=== PATIENT | male | born 1960 | race African-American/Black ===

== ENCOUNTER 2017-06-25 12:28 | Outpatient (CLI) | payer OTHER ==
--- NOTE | 2017-06-25 15:22 | ULT ---
BILATERAL RENAL ULTRASOUND: HISTORY: Abnormal labs, incomplete emptying of the urinary bladder. FINDINGS: The right kidney measures 13.1 cm in length and the left kidney measures 12.2 cm in length. No hydro nephrosis is seen on either side. There is a 1.5 cm cyst in the left kidney. The urinary bladder vo lume measures 160 cc. IMPRESSION: Left renal cyst. POS: [facility]
== END 2017-06-25 12:29 | disposition home or self-care (01) ==
LOC: ULT 12:28
PROVIDERS: ATTEND Urology
DX: N40.1 Benign prostatic hyperplasia with lower urinary tract symptoms (principal); R33.9 Retention of urine, unspecified; R97.20 Elevated prostate specific antigen [PSA]; R80.8 Other proteinuria; N28.1 Cyst of kidney, acquired
CPT/HCPCS: 76770

== ENCOUNTER 2017-07-30 15:04 | Outpatient (CLI) | payer OTHER ==
[2017-07-30 16:19] LABS: Hemoglobin 14.6 g/dL (14.0-18.0); Mean Corpuscular HGB CONC 32.8 g/dL (32.0-36.0); Mean Corpuscular Hemoglobin 27.3 pg (27.0-31.0); Mean Corpuscular Volume 83.2 fl (80.0-94.0); Mean Platelet Volume 7.4 fL (7.4-10.4); Platelet Count 238 thou/uL (130-400); RBC Distribution Width 14.4 % (11.5-14.5); Red Blood Cell (RBC) Count 5.34 mill/uL (4.70-6.10); White Blood Cell (WBC) Count 4.8 thou/uL (4.8-10.8)
[2017-07-30 16:26] LABS: Prothrombin Time 13.4 SEC (12.0-14.7)
[2017-07-30 16:27] LABS: PTT 46.7 SEC (22.9-36.1)
[2017-07-30 16:41] LABS: ALT (SGPT) 18 U/L (8-55); AST (SGOT) 16 U/L (5-34); Alkaline Phosphatase 132 U/L (40-150); Anion Gap 13 mmol/L (10-20); BUN (Urea Nitrogen) 14 mg/dL (8.4-25.7); Bilirubin, Total 0.7 mg/dL (0.2-1.2); Calc. Creatinine Clearance 0 mL/min (70-130); Calcium 9.7 mg/dL (7.8-10.44); Carbon Dioxide 28 mmol/L (22-29); Chloride 102 mmol/L (98-107); Estimated GFR-MDRD 75; Globulin 2.3 g/dL (2.4-3.5); Glucose 102 mg/dL (70-105); Potassium 4.4 mmol/L (3.5-5.1); Protein, Total 6.3 g/dL (6.0-8.3); Sodium 139 mmol/L (136-145)
--- NOTE | 2017-07-30 17:14 | RAD ---
PA AND LATERAL OF THE CHEST 07/30/17 INDICATION: Preop. COMPARISON: Prior chest radiograph dated 12/22/10. FINDINGS: There are patchy air space opacities seen within the right infrahilar region and left suprahilar jovanni on. There is cardiomegaly with mild pulmonary vascular congestion. No rashad pleural effusion is gross ly evident. No acute osseous abnormality is evident. IMPRESSION: 1. Perihilar air space opacities suspicious for pneumonia. Recommend correlation with the clinic al examination. 2. There is cardiomegaly with mild pulmonary vascular congestion. The air space and perihilar op acities could be related to air space edema; however, no rashad pleural effusion is evident. Continued radiographic followup is recommended. POS: [facility]
== END 2017-07-30 15:05 | disposition home or self-care (01) ==
LOC: LABBT 15:04
PROVIDERS: ATTEND Urology
DX: Z01.818 Encounter for other preprocedural examination (principal); R97.20 Elevated prostate specific antigen [PSA]; I51.7 Cardiomegaly; R91.8 Other nonspecific abnormal finding of lung field; R09.89 Other specified symptoms and signs involving the circulatory and respiratory systems
CPT/HCPCS: 71046; 80053; 85027; 85610; 85730; 87086

== ENCOUNTER 2017-08-08 06:35 | Day surgery (SDC) | payer OTHER ==
[2017-08-07 16:49] VITALS: BMI 34.2
[2017-08-08] MEDS ORDERED: Meropenem 1 GM in Sodium Chloride 0.9% 100 ML IVPB SCH (08:15)
[2017-08-08] MEDS ORDERED: Fentanyl 100 MCG/2 ML VIAL ONE (09:52)
[2017-08-08] MEDS ORDERED: Phenazopyridine HCl 97.5 MG TABLET ONE (11:26)
--- NOTE | 2017-08-08 13:44 | OP ---
DATE OF PROCEDURE: 08/08/2017 PREOPERATIVE DIAGNOSES: Mr. Araya is a 56-year-old male with, 1. Elevated PSA of 4.86 with normal digital rectal exam. 2. History of mild incomplete void. PVR variable from 60-180 mL. POSTOPERATIVE DIAGNOSES: Mr. Araya is a 56-year-old male with, 1. Elevated PSA of 4.86 with normal digital rectal exam. 2. History of mild incomplete void. PVR variable from 60-180 mL. PROCEDURE: Flexible cystoscopy, transrectal ultrasound, 12-core needle biopsy of the prostate. SURGEON: Anju Medel D.O. ANESTHESIA: LMA. COMPLICATIONS: None apparent. DISPOSITION: To the recovery room in stable condition. SPECIMEN: Twelve-core needle biopsy. INTRAOPERATIVE FINDINGS: 1. Flexible cystoscopy demonstrates no significant outlet obstruction. No evidence of urethral stricture, no significant BPH obstructive component, bladder grossly unremarkable. 2. Transrectal ultrasound demonstrates no significant lesion. INDICATIONS FOR THE PROCEDURE AND HISTORY: Mr. Araay is a 56-year-old morbidly obese -[place] male, who presented to my clinic with a history of elevated PSA 4.86. Patient's sister is his power of attorney recruiter, as he has history of multiple CVAs, schizoaffective disorder with dementia. He also has a history of pneumocephalus and chronic seizure disorder. Patient has been cleared by Cardiology and Medical Service to proceed with transrectal ultrasound under sedation. Patient was transitioned from 325 mg to 81 mg of aspirin with approval of Cardiology. Risks and complications including, but not limited to, bleeding, pain, infection, injury to adjacent organs, urosepsis , was reviewed with the patient and sister in detail. Due to his mental capacity, patient's sister, who is the power of attorney recruiter desired exam under anesthesia. DESCRIPTION OF THE PROCEDURE: After an informed consent is signed, the patient is taken to the operating room, placed in a supine position with the genital area prepped and draped in the usual surgical sterile fashion. A flexible cystoscopy was performed after broad-spectrum antibiotics and bilateral FELIPE hose and SCDs were placed. A flexible cystoscope was passed without difficulty. There is no evidence of urethral stricture, no significant outlet component obstruction. Bladder was grossly unremarkable. The prostate lobes were coapting; however, there is no significant obstructive component. The bladder was subsequently emptied with a 16-Romansh Grimm catheter, and he was turned to his left lateral decubitus position with pressure points padded and protected. A transrectal ultrasound probe was passed. Dimensions were measured for prostate volume. Urethral length 3.9, width 4.4, height 2.4 cm for a volume of 23 grams. There was no evidence of lesions. A 12 core needle biopsy was performed uneventfully. He tolerated the procedure well. He will be discharged with Omnicef for a course of 7 days, based on his Cipro resistance , rectal swab culture and urine culture negative. Omnicef 300 mg 1 p.o. b.i.d. until followup appointment. We will continue to monitor his voiding status. Strict instructions to residential regarding baby aspirin until followup appointment. GLENDY
[2017-08-08] MEDS ORDERED: PHENYLEPHRINE-NS 100 MCG/ML 10 ML SYRINGE ONE (14:40)
[2017-08-08] MEDS ORDERED: Lidocaine 1% PF 5 ML VIAL ONE (14:40)
[2017-08-08] MEDS ORDERED: ePHEDrine/0.9% NaCl/PF SYRINGE 50 mg/10 ml ONE (14:40)
[2017-08-08] MEDS ORDERED: Propofol 200 MG/20 ML VIAL ONE (14:40)
[2017-08-08] MEDS ORDERED: Dexamethasone 20 MG/5 ML VIAL ONE (14:40)
[2017-08-08] MEDS ORDERED: Ondansetron HCl/PF 4 MG/2 ML Vial ONE (14:40)
[2017-08-08] MEDS ORDERED: Tamsulosin HCl 0.4 MG CAP ONE (14:45)
--- NOTE | 2017-08-09 00:53 | EKG ---
Test Reason : PREOP Blood Pressure : / mmHG Vent. Rate : 069 BPM Atrial Rate : 069 BPM P-R Int : 150 ms QRS Dur : 086 ms QT Int : 414 ms P-R-T Axes : 069 052 047 degrees QTc Int : 443 ms Normal sinus rhythm Normal ECG When compared with ECG of 11-SEP-2013 09:57, QRS axis Shifted right QRS voltage has decreased Confirmed by TYSHAWN LUCIO, . SCharles ([id number]) on 08/09/2017 12:53:03 AM Referred By: ANTONIO Confirmed By:DR. Saranya VILLAGRAN MD
== END 2017-08-08 16:46 ==
LOC: SDC 06:35
PROVIDERS: ATTEND Urology
PROC: 0VB03ZX Excision of Prostate, Percutaneous Approach, Diagnostic (ICD-10-PCS; principal; 2017-08-08)
DX: C61 Malignant neoplasm of prostate (principal); I11.0 Hypertensive heart disease with heart failure; I50.32 Chronic diastolic (congestive) heart failure; G40.909 Epilepsy, unspecified, not intractable, without status epilepticus; E78.5 Hyperlipidemia, unspecified; F32.9 Major depressive disorder, single episode, unspecified; F03.90 Unspecified dementia, unspecified severity, without behavioral disturbance, psychotic disturbance, mood disturbance, and anxiety; F25.9 Schizoaffective disorder, unspecified; I67.4 Hypertensive encephalopathy; Z79.82 Long term (current) use of aspirin; Z79.899 Other long term (current) drug therapy; Z86.19 Personal history of other infectious and parasitic diseases; Z87.891 Personal history of nicotine dependence; Z86.73 Personal history of transient ischemic attack (TIA), and cerebral infarction without residual deficits
CPT/HCPCS: 88305; 93005; 93010; J0131; J1100; J2001; J2185; J2405; J2704; J3010; J7050

== ENCOUNTER 2017-09-06 10:50 | Outpatient (CLI) | payer OTHER ==
--- NOTE | 2017-09-06 12:46 | CT ---
PRE AND POST CONTRAST ENHANCED CT IMAGES ABDOMEN AND PELVIS: HISTORY: Patient with a history of prostate cancer. TECHNIQUE: IV contrast was given. FINDINGS: The lung bases demonstrate some diffuse ground-glass opacities in the bases, possibly representing in terstitial changes. There is no evidence of free intraperitoneal air. No evidence of osseous lesions seen. There appears to be some coronary artery calcification in the left main and LAD vessels. The liver and spleen are unremarkable. The gallbladder is contracted. The pancreas is unremarkable. Adrenal glands are unremarkable. Multiple small subcentimeter hypodense areas seen in the kidneys most compatible with renal cortical cysts. No evidence of paraaortic lymphadenopathy is seen. The prostate gland is not significantly enlarged. No significant evidence of pelvic lymphadenopathy is seen. The ureters and urinary bladder are unremarkable. Osseous lesions demonstrate no definite evidence of sclerotic bony lesions. There do appear to vacuu m disk changes seen at L5-S1 intervertebral disk space. POS: [facility]
[2017-09-06] MEDS ORDERED: Iopamidol 370 76% 100 ML VIAL ONE (17:06)
== END 2017-09-06 10:51 | disposition home or self-care (01) ==
LOC: CT 10:50
PROVIDERS: ATTEND Urology
DX: C61 Malignant neoplasm of prostate (principal)
CPT/HCPCS: 74178

== ENCOUNTER 2017-09-26 15:26 | Outpatient (CLI) | payer OTHER ==
[~2017-09-26 15:26] MED LIST: Gadobenate Dimeglumine 529 MG/1 ML (20ML VIAL) ONE
--- NOTE | 2017-09-26 20:39 | MRI ---
MRI PELVIS WITH AND WITHOUT CONTRAST PROSTATE PROTOCOL 09/26/17 HISTORY: Elevated PSA. Positive prostate biopsy. COMPARISON: None. TECHNIQUE: MRI of pelvis performed prior to and after the intravenous administration of contrast, prostate adeel col. FINDINGS: Prostate measures 4.4 x 2.9 x 3.6 cm for a volume of approximately 25 mL. Peripheral zone: Extending from the mid gland to the apex is a 7 x 10 x 9 mm T2 hypointense lesion wi th mild decreased signal on the ADC. Evaluation is limited due to extensive hemorrhage throughout the peripheral zone. There is loss of normal signal void along the capsule, series 5, image 14. No neuro vascular bundle invasion is appreciated. Rectoprostatic angles are normal. Transitional zone: Intact. Lymph nodes: No evidence of adenopathy. Small left external iliac lymph node and right external iliac lymph node. No obturator lymph nodes are appreciated. There are, however, bilateral external iliac l ymph nodes which are abnormal in size. On the right measures 11 mm in short axis and on the left carla ures up to 9 mm in short axis. Bones: On T1 imaging weighted sequence there are no abnormal areas of marrow signal replacement. Intrapelvic soft tissues: Urinary bladder is mildly distended. Mild degenerative disease of the L5-S1 disc space. The visualized rectum and sigmoid colon are unremarkable. Medial rectal fat is normal. T here is a small medial rectal lymph node at 3 o'clock measuring up to 4 mm short axis. IMPRESSION: 1. PI-RADS 4 - high (clinically significant cancer is likely to be present). This is in the left mid gland to apex 4-5 o'clock measuring 7 x 10 x 9 mm. 2. Abnormal bilateral external iliac lymph nodes, although could be reactive. No abnormal industrial engineering intern al iliac lymph nodes. 3. No evidence for osseous metastatic disease of the pelvis. 4. Loss of normal prostatic capsule, series 5, image 14 concerning for early extra prostatic ext ension. This is at the largest portion of the base of the tumor. POS: [facility]
== END 2017-09-26 15:27 | disposition home or self-care (01) ==
LOC: TBSIIMAG 15:26
PROVIDERS: ATTEND Urology
DX: C61 Malignant neoplasm of prostate (principal)
CPT/HCPCS: 72197; A9579

== ENCOUNTER 2017-12-05 14:36 | Outpatient (CLI) | payer OTHER ==
--- NOTE | 2017-12-05 16:12 | ULT ---
ULTRASOUND RETROPERITONEUM COMPLETE: (RENAL) DATE: 12/05/17. HISTORY: A 57-year-old male with prostate cancer FINDINGS: Right kidney: 13 x 6.5 x 6 cm. Left kidney: 12 x 7 x 6 cm. No hydronephrosis bilaterally. Bilateral renal parenchymal thickness normal. Small 1.5 cm round exophytic cyst protruding from cortex of left renal lower pole. Tiny 0.5 cm exophytic cyst protruding from upper pole cortex of the left kidney. Patient unable to void. Repeat urinary bladder volume 460 mL. Diffuse, mild, uniform mural thickening of the urinary bladder, up to 0.5 cm. IMPRESSION: 1. Distended urinary bladder. The patient is unable to void. 2. Mild mural thickening of the urinary bladder. 3. No hydronephrosis. 4. At least 2 small left renal cysts. JN R POS: [facility]
== END 2017-12-05 14:37 | disposition home or self-care (01) ==
LOC: ULT 14:36
PROVIDERS: ATTEND Urology
DX: C61 Malignant neoplasm of prostate (principal); R33.9 Retention of urine, unspecified; R35.0 Frequency of micturition; N32.89 Other specified disorders of bladder; N28.1 Cyst of kidney, acquired
CPT/HCPCS: 76770

== ENCOUNTER 2018-04-10 09:39 | Outpatient (CLI) | payer OTHER ==
[2018-04-10] MEDS ORDERED: Gadobenate Dimeglumine 529 MG/1 ML (20ML VIAL) ONE (10:16)
--- NOTE | 2018-04-10 16:58 | MRI ---
MRI PELVIS WITH AND WITHOUT CONTRAST PROSTATE PROTOCOL: HISTORY: Prostate cancer. COMPARISON: MRI pelvis from 09/26/2017. FINDINGS: The prostate measures 4.4 x 4.2 x 3.9 cm, for a volume of 33 mL. PERIPHERAL ZONE: The previously noted area of T2 signal hypointensity in the peripheral zone, to the left of the gland, from 4 to 5 o'clock to the apex, is decreased in T2 signal abnormality. No diffu jyoti restriction in this area is present. There is some scarring at 3 o'clock, mid gland and base. TRANSITIONAL ZONE: No confluent focal area of T2 signal hypointensity. LYMPH NODES: The bilateral external iliac adenopathy has mildly increased in size, now measuring dane roximately a centimeter in short axis. Small obturator lymph nodes are present. NEUROVASCULAR BUNDLES: Intact. PROSTATIC CAPSULE: Intact. BONES: No abnormal loss in T1 signal to suggest osseous metastatic disease. INTRAPELVIC SOFT TISSUES: Intact. IMPRESSION: 1. Previously noted prostatic cancer, which was a PI-RADS 4 in the left peripheral zone, from mid gl and to apex, no longer demonstrates diffusion restriction or T2 signal abnormality. This may be iraj tment response. 2. Intact neurovascular bundles and prostatic capsule. No evidence of extraprostatic distention. 3. Mild interval size increase, although external iliac adenopathy would suggest there is some mild diffusion restriction, which may be involved with a malignant process. 4. No evidence of osseous metastatic disease. POS: [facility]
== END 2018-04-10 09:40 | disposition home or self-care (01) ==
LOC: TBSIIMAG 09:39
PROVIDERS: ATTEND Urology
DX: C61 Malignant neoplasm of prostate (principal); R33.9 Retention of urine, unspecified; N31.8 Other neuromuscular dysfunction of bladder; R59.0 Localized enlarged lymph nodes
CPT/HCPCS: 72197; 82565; A9579

== ENCOUNTER 2018-08-21 14:04 | Outpatient (CLI) | payer OTHER ==
[2018-08-21 14:28] LABS: Estimated GFR-MDRD - POC Greater than 90
--- NOTE | 2018-08-21 16:24 | MRI ---
MR OF THE PELVIS WITH AND WITHOUT IV CONTRAST: 08/21/18 INDICATION: History of prostate cancer. COMPARISON: Prior MR of the pelvis with and without contrast dated 09/26/17 and 04/10/18. TECHNIQUE: Multiplanar and multisequence MR images were obtained of the pelvis utilizing prostate cancer specifi c protocol. 60 mL of Multihance was utilized for the examination. The images were interpreted on a [employer] work station for multiparametric evaluation. Mild motion artifact limits image detail. FINDINGS: The prostatic volume measures 4.8 x 3.7 x 3.2 cm giving an estimated prostatic volume of 29.67 mL. Susceptibility artifact from bowel gas within the rectum slightly limits evaluation of the ADC and di ffusion weighted images. No definite restricted diffusion is grossly evident. Subtle feather-like ar eas of T2 hypointensity within the medial aspect of the gland and apex of the prostate is again noted suspicious for scar. No area of abnormal contrast enhancement is evident. No T2 signal abnormality is seen within the central zone. There is no overt evidence to suggest neurovascular invasion. Mildly prominent external iliac chain lymph nodes have been stable since September 2017. One of the most prominent is seen along the distal aspect of the left external iliac on image 38 of series 4 measuri ng 7 mm. Additional is seen measuring 9 mm on image 34 of series 4. Largest on the right is seen on i mage 37 of series 4 measuring close to 1 cm. Again, these are stable to the prior exam. No definite bone marrow signal abnormality is evident. IMPRESSION: 1. Stable examination of the pelvis. No suspicious signal abnormality is evident within the pros pruett likely reflecting response to therapy. 2. There is no evidence to suggest extraprostatic spread of disease. 3. Mildly prominent lymph nodes seen along the external iliac chain are stable since September 2017. POS: [facility]
== END 2018-08-21 14:05 | disposition home or self-care (01) ==
LOC: TBSIIMAG 14:04
PROVIDERS: ATTEND Urology
DX: C61 Malignant neoplasm of prostate (principal)
CPT/HCPCS: 72197; 82565; A9577